=== PATIENT | female | born 1950 | race Caucasian/White ===

== ENCOUNTER 2017-10-22 16:32 | Emergency (ER) | payer MEDICARE ==
[~2017-10-22] VITALS: Ht 170.2 cm; Wt 84.8 kg
--- NOTE | 2017-10-22 16:40 | NUR ---
[id number] FROM HOME: LEFT SHOULDER PAIN S/P 4' GLF, MORPHINE 8, ZOFRAN 4 GIVEN IN FIELD BY EMS, NAD NOTED, VSS, RESP EVEN AND UNLABORED, PT WAS PUT ON MONITOR, MD AT BS.
[2017-10-22] MEDS ORDERED: KETOROLAC TROMETHAMINE INJ 30 MG/ML VIAL IM ONE (17:00)
[2017-10-22] MEDS ORDERED: KETOROLAC TROMETHAMINE 15 MG/ML VIAL ONE (17:17)
[2017-10-22] MEDS ORDERED: KETOROLAC TROMETHAMINE INJ 30 MG/ML VIAL IV ONE (17:30)
[2017-10-22] MEDS ORDERED: oxyCODONE/APAP (5/325 MG) 1 UDTAB TABLET PO ONE (19:30)
[2017-10-22] MEDS ORDERED: oxyCODONE/APAP (5/325 MG) 1 UDTAB TABLET ONE (19:31)
[2017-10-22 19:55] VITALS: BP 138/79
== END 2017-10-22 20:14 | disposition home or self-care (01) ==
LOC: ER 16:44
DX: S42.212A Unspecified displaced fracture of surgical neck of left humerus, initial encounter for closed fracture (principal); E11.9 Type 2 diabetes mellitus without complications; I10 Essential (primary) hypertension; W18.39XA Other fall on same level, initial encounter; Y93.89 Activity, other specified; Y92.89 Other specified places as the place of occurrence of the external cause; Y99.8 Other external cause status
CPT/HCPCS: 71045; 73030; 73060; 73070; 73090; 96374; 99284; A4606; A6402; J1885; Z7610